=== PATIENT | male | born 1940 | race Hispanic/Latino ===

== ENCOUNTER 2018-12-20 12:07 | Emergency (ER) | payer MEDICARE ==
[~2018-12-20] VITALS: Ht 157.5 cm; Wt 54.4 kg
--- NOTE | 2018-12-20 12:28 | NUR ---
DR CLOUD AT BEDSIDE FOR LACERATION REPAIR. NO SIGNS OF ACUTE DISTRESS NOTED. Addendum: 12/20/18 at [address] CLOUD AT BEDSIDE FOR PATIENT EVAL. NO SIGNS OF ACUTE DISTRESS NOTED.
[2018-12-20] MEDS ORDERED: LIDOCAINE 1% W/EPINEPHRINE 20 ML VIAL INJ STA (12:30)
[2018-12-20] MEDS ORDERED: TETANUS/DIPHTHERIA TOX ADULT 0.5 ML SYR IM STA (12:30)
[2018-12-20] MEDS ORDERED: LIDOCAINE 1% W/EPINEPHRINE 20 ML VIAL INJ ONE (12:30)
[2018-12-20] MEDS ORDERED: MUPIROCIN 2% OINT 22 GM TUBE TOP ONE (12:30)
[2018-12-20] MEDS ORDERED: TETANUS/DIPHTHERIA TOX ADULT 0.5 ML SYR ONE (12:43)
[2018-12-20] MEDS ORDERED: BACITRACIN ZINC 0.9GM TP ONE ×2 (13:00→13:02)
[2018-12-20] MEDS ORDERED: LIDOCAINE 1% W/EPINEPHRINE 20 ML VIAL ONE (13:01)
--- NOTE | 2018-12-20 13:15 | Diagnostic Imaging Report ---
CT BRAIN [facility] HISTORY: Trauma COMPARISON: None. Technique: Noncontrast axial scans were obtained from skull base to the vertex. Coronal and sagittal reconstructions obtained from the axial data. One or more of the following dose reduction techniques were used: Automated exposure control, adjustment of the mA and/or kV according to patient size, and/or utilization of iterative reconstruction technique. DISCUSSION: Scalp/Skull: Small left frontal scalp hematoma. No calvarial fracture. Brain sulci: Prominent. Ventricles: Compensatory dilatation. Extra-axial spaces: No masses or fluid collections. Carotid siphon calcifications are present. Parenchyma: Mild to moderate bilateral deep white matter hypodensity is likely chronic microvascular ischemic change. Otherwise, no masses, hemorrhage, or large vascular territory acute infarct. Dural sinuses: No abnormal densities. Sellar/Suprasellar region: Intact. Skull base: Intact. Incidental findings: Both ocular lenses are thinned. IMPRESSION: 1. No acute intracranial abnormalities. 2. Mild to moderate supratentorial chronic microvascular ischemic change. Generalized cerebral volume loss. Signed by: Dr. Sanchez Alcantar M.D. on 12/20/2018 1:12 PM
--- NOTE | 2018-12-20 13:36 | NUR ---
DR CLOUD AT BEDSIDE FOR LACERATION REPAIR. NO SIGNS OF ACUTE DISTRESS NOTED.
--- NOTE | 2018-12-20 14:09 | Diagnostic Imaging Report ---
Exam: Left hand 3 views History: Pain Comparison: None. Findings: Bone demineralization. Minimally displaced extra articular fracture proximal phalanx third digit. Impression: Minimally displaced extra articular fracture proximal phalanx third digit. Signed by: Dr. Jonah Fernández M.D. on 12/20/2018 2:06 PM
--- NOTE | 2018-12-20 14:11 | Diagnostic Imaging Report ---
Exam: Right hand 3 views History: Pain Comparison: None. Findings: Bone demineralization. No fracture. Prior indication across the fifth metacarpal. Joint spaces are preserved. Impression: No acute osseous abnormality Signed by: Dr. Jonah Fernández M.D. on 12/20/2018 2:07 PM
== END 2018-12-20 14:50 | disposition home or self-care (01) ==
LOC: FSED 12:07
DX: S01.81XA Laceration without foreign body of other part of head, initial encounter (principal); S62.613A Displaced fracture of proximal phalanx of left middle finger, initial encounter for closed fracture; S00.83XA Contusion of other part of head, initial encounter; W01.0XXA Fall on same level from slipping, tripping and stumbling without subsequent striking against object, initial encounter; Y92.008 Other place in unspecified non-institutional (private) residence as the place of occurrence of the external cause; Z85.01 Personal history of malignant neoplasm of esophagus
CPT/HCPCS: 70450; 90471; 90714; 99284

== ENCOUNTER → 2019-03-20 | Day surgery (SDC) | payer MEDICARE ==
[2019-03-10 10:47] LABS: BASOPHILS % 0.5 % (0.0-1.0); EOSINOPHILS # (AUTO) 0.1 (0.0-0.4); EOSINOPHILS % 1.3 % (0.0-6.0); HEMATOCRIT 36.1 % (38.2-49.6); HEMOGLOBIN 12.4 g/dL (14.0-18.0); LYMPHOCYTES # (AUTO) 1.6 (1.0-3.2); LYMPHOCYTES % 20.2 % (18.0-39.1); MEAN CORPUSCULAR HEMOGLOBIN 30.2 pg (28-32); MEAN CORPUSCULAR HGB CONC 34.3 g/dL (31-35); MONOCYTES # (AUTO) 0.5 (0.2-0.8); MONOCYTES % 6.2 % (4.4-11.3); NEUTROPHILS # (AUTO) 5.5 (2.1-6.9); NEUTROPHILS % 71.2 % (38.7-80.0); PLATELET COUNT 361 x10e3/uL (140-360)
[~2019-03-20] MED LIST: BYSTOLIC10 MG PO; DILTIAZEM 24HR180 MG PO; LIDOCAINE HCL 2% LOCAL INJ 5 ML SDV VIAL INJ ONE; OMEPRAZOLE40 MG PO; PROPOFOL IV EMULSION 10 MG/ML 20 ML VIAL ONE; QUESTRAN PACKET4 GM PO; SIMETHICONE 40 MG/0.6 ML BTL ONE; ULTRACET TABLE1 EACH PO; VITAMIN D35000 UNIT PO
--- OUTSIDE RECORDS SUMMARY | 2019-03-20 05:12 | XMS REPORT ---
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 Allergies, Adverse Reactions, Alerts This patient has no known allergies or adverse reactions. Medications This patient has no known medications. Results Test Description Test Time Test Comments Text Results Atomic Results Result Comments HAND 2 VIEW RT - [facility] 2018-12-20 14:06:00 [place] [address] Patient Name: APOLLO SUAREZ MR #: [id number] : 1940 Age/Sex: 78/M Req #: [id number] Adm Physician: Ordered by: HEATH CLOUD MD Report #: [id number] Location: [facility] Room/Bed: Procedure: [id number] [facility]/HAND 2 VIEW RT - [facility] Exam Date: 12/20/18 Exam Time: 1315 REPORT STATUS: Signed Exam: Right hand 3 views History: Pain C omparison: None. Findings: Bone demineralization. No fracture. Prior indication across the fifth metacarpal. Joint spaces are preserved. Impression: No acute osseous abnormality Signed by: Dr. Dwayne Addison M.D. on 12/20/2018 2:07 PM Dictated By: DWAYNE ADDISON MD 06 Transcribed By: ISABEL on 12/20/181406 COPY TO: HEATH CLOUD MD HAND 2 VIEW [facility] 2018-12-20 14:04:00 [facility] [address] [place] [address] Patient Name: APOLLO SUAREZ MR #: [id number] : 1940 Age/Sex: 78/M Req #: [id number] Adm Physician: Ordered by: HEATH CLOUD MD Report #: [id number] Location: [facility] Room/Bed: Procedure: [id number] HOPD/HAND 2 VIEW - [facility] Exam Date: 12/20/18 Exam Time: 1315 REPORT STATUS: Signed Exam: Left hand 3 views History: Pain Co mparison: None. Findings: Bone demineralization. Minimally displaced extra articular fracture proximal phalanx third digit. Impression: Minimally displaced extra articular fracture proximal phalanx third digit. Signed by: Dr. Dwayne Addison M.D. on 12/20/2018 2:06 PM Dictated By: DWAYNE ADDISON MD 05 Transcribed By: ISABEL on 12/20/181405 COPY TO: HEATH CLOUD MD CT BRAIN [facility] 2018-12-20 13:09:00 [place] [address] Patient Name: APOLLO SUAREZ MR #: [id number] : 1940 Age/Sex: 78/M Req #: [id number] Adm Physician: Ordered by: HEATH CLOUD MD Report #: [id number] Location: [facility] Room/Bed: Procedure: [id number] HOPD/CT BRAIN [facility] Exam Date: 12/20/18 Exam Time: 1309 REPORT STATUS: Signed CT BRAIN [facility] HISTORY: Trauma COMPARISON: None. Technique: Noncontrast axial scans were obtained from skull base to the vertex. Coronal and sagittal reconstructions obtained from the axial data. One or more of the following dose reduction techniques were used: Automated exposure control, adjustment of the mA and/or kV according to patient size, and/or utilization of iterative reconstruction technique. DISCUSSION: Scalp/Skull: Small left frontal scalp hematoma. No calvarial fracture. Brain sulci: Prominent. Ventricles: Compensatory dilatation. Extra-axial spaces: No masses or fluid collections. Carotid siphon calcifications are present. Parenchyma: Mild to moderate bilateral deep white matter hypodensity is likely chronic microvascular ischemic change. Otherwise, no masses, hemorrhage, or large vascular territory acute infarct. Dural sinuses: No abnormal densities. Sellar/Suprasellar region: Intact. Skull base: Intact. Incidental findings: Both ocular lenses are thinned. IMPRESSION: 1. No acute intracranial abnormalities. 2. Mild to moderate supratentorial chronic microvascular ischemic change. Generalized cerebral volume loss. Signed by: Dr. Sanchez Alcantar M.D. on 12/20/2018 1:12 PM Dictated By: SANCHEZ ALCANTAR MD 11 Transcribed By: ISABEL on 12/20/181311 COPY TO: HEATH CLOUD MD
[2019-03-20 07:45] VITALS: BP 131/73
== END | disposition home or self-care (01) ==
LOC: OR 05:00
PROVIDERS: ATTEND Internal Medicine Gastroenterology
DX: R63.4 Abnormal weight loss (principal); K29.70 Gastritis, unspecified, without bleeding; K22.2 Esophageal obstruction; K31.89 Other diseases of stomach and duodenum; Z98.0 Intestinal bypass and anastomosis status; K21.9 Gastro-esophageal reflux disease without esophagitis; Z71.3 Dietary counseling and surveillance; I10 Essential (primary) hypertension; R00.1 Bradycardia, unspecified; I44.0 Atrioventricular block, first degree; Z01.810 Encounter for preprocedural cardiovascular examination; Z01.812 Encounter for preprocedural laboratory examination; Z68.1 Body mass index [BMI] 19.9 or less, adult; Z87.891 Personal history of nicotine dependence; Z85.01 Personal history of malignant neoplasm of esophagus
CPT/HCPCS: 36415; 43239; 85025; 88305; 88312; 93005; J2001; J2704